=== PATIENT | male | born 2000 | race Caucasian/White ===

== ENCOUNTER 2021-01-22 23:18 | Emergency (ER) | payer OTHER ==
[~2021-01-22] VITALS: Ht 180.3 cm; Wt 70.3 kg
[2021-01-22] MEDS ORDERED: NOHOMEMEDICATIONS (23:27)
[2021-01-22] MEDS ORDERED: DOXYCYCLINE 10100 MG PO (23:44)
[2021-01-22 23:59] VITALS: BP 135/89
== END 2021-01-23 00:01 | disposition home or self-care (01) ==
LOC: ER 23:18
DX: L03.012 Cellulitis of left finger (principal); F12.90 Cannabis use, unspecified, uncomplicated; Z98.890 Other specified postprocedural states